=== PATIENT | female | born 1970 | race African-American/Black ===

== ENCOUNTER 2016-09-17 02:15 | Emergency (ER) | payer MEDICAID ==
[~2016-09-17] VITALS: Ht 165.1 cm; Wt 95.0 kg
[2016-09-17 02:22] VITALS: BP 146/90
== END 2016-09-17 05:51 | disposition left against medical advice (07) ==
LOC: ER 02:18
DX: R10.9 Unspecified abdominal pain (principal); Z53.21 Procedure and treatment not carried out due to patient leaving prior to being seen by health care provider

== ENCOUNTER 2018-12-19 10:17 | Inpatient (IN) | payer MEDICAID, OTHER ==
[~2018-12-19] VITALS: Ht 167.6 cm; Wt 108.0 kg
[2018-12-19] MEDS ORDERED: ONDANSETRON HCL 4MG/2ML INJ IV ONE (10:45)
[2018-12-19] MEDS ORDERED: ASPIRIN 81MG TABLET PO ONE (10:45)
[2018-12-19] MEDS ORDERED: NITROGLYCERIN OINT 1GM/INCH UDPKT TD ONE (10:45)
[2018-12-19] MEDS ORDERED: FENTANYL CITRATE/PF 50MCG/ML 2ML VIAL IV ONE (10:45)
[2018-12-19 10:56] LABS: BASOPHILS % 0.4 % (0.0-2.0); EOSINOPHILS % 1.1 % (0.0-5.0); HEMATOCRIT. 38.2 % (36.0-48.0); HEMOGLOBIN. 12.6 g/dL (12.0-16.0); LYMPHOCYTES % 21.5 % (20.0-50.0); MEAN CORPUSCULAR HEMOGLOBIN 26.6 pg (28.0-32.0); MEAN CORPUSCULAR VOLUME 80.7 fL (81.0-99.0); MEAN PLATELET VOLUME 7.6 fl (7.4-10.4); MONOCYTES % 6.2 % (2.0-8.0); NEUTROPHILS % 70.8 % (40.0-76.0); PLATELET 304 x1000/uL (130-400); RED BLOOD CELL COUNT 4.73 mill/uL (4.2-5.4); RED CELL DISTRIBUTION WIDTH 17.4 % (11.6-14.6)
[2018-12-19 10:59] LABS: CHLORIDE 102 mEq/L (98-107)
[2018-12-19 11:03] LABS: ETHANOL BLOOD < 10 mg/dL; HCG SCREEN NEGATIVE
[2018-12-19 11:06] LABS: PARTIAL THROMBOPLASTIN TIME 27.4 sec (23.4-31.0); PROTHROMBIN TIME 10.3 sec (9.6-11.0)
[2018-12-19] MEDS ORDERED: HEPARIN 5000 UNITS/ML VIAL IV ONE (11:15)
[2018-12-19] MEDS ORDERED: POTASSIUM CHLORIDE 20MEQ TABLET SR PO ONE (11:30)
[2018-12-19] MEDS ORDERED: BISACODYL 5MG TABLET PO ONE (11:30)
[2018-12-19] MEDS ORDERED: ACETAMINOPHEN 325MG TABLET PO PRN (11:45)
[2018-12-19] MEDS ORDERED: IPRATROPIUM/ALBUTEROL 0.5-3(2.5)MG/3ML NEB HHN PRN (11:45)
[2018-12-19] MEDS ORDERED: DEXTROSE 50% WATER 50ML SYRINGE IV PRN (11:45)
[2018-12-19] MEDS ORDERED: ONDANSETRON HCL 4MG/2ML INJ IV PRN (11:45)
[2018-12-19 13:51] VITALS: BP 124/74
[2018-12-19 13:57] VITALS: BP 124/74
[2018-12-19] MEDS ORDERED: NEBIVOLOL HCL 5 MG TABLET PO NR (15:00)
[2018-12-19] MEDS: SODIUM CHLORIDE 0.9% 1,000 ML IV SCH (15:50)
[2018-12-19] MEDS: NICOTINE 14MG PATCH TD SCH (15:56)
[2018-12-19 16:00] VITALS: BP 141/53
[2018-12-19] MEDS ORDERED: DIPHENHYDRAMINE 50MG/ML VIAL IV PRN (16:00)
[2018-12-19 17:04] LABS: CLARITY URINE CLOUDY (CLEAR); COLOR URINE YELLOW (YELLOW); KETONES URINE NEGATIVE (NEGATIVE); LEUKOCYTE ESTERASE URINE TRACE (NEGATIVE); NITRITE URINE NEGATIVE (NEGATIVE); OCCULT BLOOD URINE 1+ (NEGATIVE); PROTEIN URINE 1+ (NEGATIVE); SPECIFIC GRAVITY URINE 1.019 (1.005-1.030)
[2018-12-19 17:19] LABS: *AMPHETAMINES SCREEN URINE NEGATIVE (NEGATIVE); METHADONE URINE SCREEN NEGATIVE (NEGATIVE); OPIATES URINE SCREEN NEGATIVE (NEGATIVE); PHENCYCLIDINE URINE SCREEN NEGATIVE (NEGATIVE)
[2018-12-19 17:20] LABS: *BARBITURATES SCREEN URINE NEGATIVE (NEGATIVE); *BENZODIAZEPINES SCREEN URINE NEGATIVE (NEGATIVE); *COCAINE SCREEN URINE NEGATIVE (NEGATIVE)
[2018-12-19] MEDS: INSULIN LISPRO 100 UNITS/ML SUBCUT SCH ×2 (17:20→20:38)
[2018-12-19 17:23] LABS: CANNABINOID URINE SCREEN PRESUMTIVE POSITIVE (NEGATIVE)
[2018-12-19] MEDS: BLOOD SUGAR DIAGNOSTIC STRIP TEST SCH ×2 (17:44→20:40)
[2018-12-19] MEDS: DILTIAZEM HCL 60MG TABLET PO SCH (17:44)
[2018-12-19 17:56] VITALS: BP 134/93
[2018-12-19 20:01] VITALS: BP 146/93
[2018-12-19] MEDS: METOPROLOL TARTRATE 50MG TABLET PO SCH (20:06)
[2018-12-19] MEDS: HYDROCODONE/ACETAMINOPHEN 10/325MG TABLET PO PRN (20:36)
[2018-12-19 22:00] VITALS: BP 120/75
[2018-12-20] VITALS (8 sets, daily range): BP systolic 118–147; BP diastolic 70–98
[2018-12-20] MEDS: DILTIAZEM HCL 60MG TABLET PO SCH ×3 (00:58→12:00)
[2018-12-20] MEDS: SODIUM CHLORIDE 0.9% 1,000 ML IV SCH (02:20)
[2018-12-20] MEDS: BLOOD SUGAR DIAGNOSTIC STRIP TEST SCH ×2 (06:01→12:17)
[2018-12-20] MEDS: HYDROCODONE/ACETAMINOPHEN 10/325MG TABLET PO PRN (06:02)
[2018-12-20 07:14] LABS: BASOPHILS % 0.3 % (0.0-2.0); EOSINOPHILS % 1.2 % (0.0-5.0); HEMATOCRIT. 32.4 % (36.0-48.0); HEMOGLOBIN. 10.4 g/dL (12.0-16.0); LYMPHOCYTES % 25.4 % (20.0-50.0); MEAN CORPUSCULAR HEMOGLOBIN 26.3 pg (28.0-32.0); MEAN CORPUSCULAR VOLUME 82.1 fL (81.0-99.0); MEAN PLATELET VOLUME 7.7 fl (7.4-10.4); MONOCYTES % 9.7 % (2.0-8.0); NEUTROPHILS % 63.4 % (40.0-76.0); PLATELET 273 x1000/uL (130-400); RED BLOOD CELL COUNT 3.94 mill/uL (4.2-5.4); RED CELL DISTRIBUTION WIDTH 17.5 % (11.6-14.6)
[2018-12-20] MEDS: INSULIN LISPRO 100 UNITS/ML SUBCUT SCH ×2 (07:20→12:18)
[2018-12-20] MEDS ORDERED: DIPHENHYDRAMINE 50MG CAPSULE PO PRN (07:45)
[2018-12-20 07:58] LABS: CHLORIDE 102 mEq/L (98-107)
[2018-12-20] MEDS ORDERED: DIPHENHYDRAMINE 50MG/ML VIAL IV PRN (08:00)
[2018-12-20 08:14] LABS: CREATINE KINASE 73 IU/L (26-192)
[2018-12-20 08:26] LABS: CREATINE KINASE MB FRACTION 1.8 ng/mL (0.5-3.6)
[2018-12-20] MEDS: NICOTINE 14MG PATCH TD SCH (08:37)
[2018-12-20] MEDS ORDERED: ASPIRIN 81MG TABLET PO SCH (09:00)
[2018-12-20] MEDS: METOPROLOL TARTRATE 50MG TABLET PO SCH (09:00)
[2018-12-20] MEDS ORDERED: BISA10SU62 RC (13:50)
[2018-12-20] MEDS ORDERED: AMLO10TA80 MT (13:50)
[2018-12-20] MEDS ORDERED: METF-414 PO (13:50)
[2018-12-20] MEDS ORDERED: IBUP-2029 PO (13:50)
[2018-12-20] MEDS ORDERED: HYDR25TA PO (13:50)
[2018-12-20] MEDS ORDERED: OMEP20TA15 PO (13:54)
[2018-12-20] MEDS ORDERED: DEXT38GE PO (13:54)
[2018-12-20] MEDS ORDERED: FURO40TA5 PO (13:55)
== END 2018-12-20 14:29 | disposition home or self-care (01) | DRG 203 ==
LOC: ER 10:17 → EDBEDREQ 10:30 → 3WST 11:15 → EDBEDREQ 11:29 → EDBEDREQSVC 11:29 → EDBEDREQTM 11:29 → ENRESERV 12:53
PROVIDERS: ADMIT Internal Medicine; ATTEND Internal Medicine
DX: M94.0 Chondrocostal junction syndrome [Tietze] (principal); E11.9 Type 2 diabetes mellitus without complications; J44.9 Chronic obstructive pulmonary disease, unspecified; I10 Essential (primary) hypertension; F17.210 Nicotine dependence, cigarettes, uncomplicated; E87.6 Hypokalemia; E78.5 Hyperlipidemia, unspecified; I25.10 Atherosclerotic heart disease of native coronary artery without angina pectoris; E78.00 Pure hypercholesterolemia, unspecified; R00.0 Tachycardia, unspecified; E66.9 Obesity, unspecified; E78.1 Pure hyperglyceridemia; Z68.38 Body mass index [BMI] 38.0-38.9, adult; Z98.891 History of uterine scar from previous surgery; Z87.01 Personal history of pneumonia (recurrent); I25.2 Old myocardial infarction; Z71.3 Dietary counseling and surveillance; Z71.6 Tobacco abuse counseling; Z95.5 Presence of coronary angioplasty implant and graft
CPT/HCPCS: 36415; 71045; 72131; 80305; 80320; 82550; 82553; 82962; 83735; 83880; 84443; 84484; 84703; 85379; 93005; 93306; 93970; 96374; 96375; 97162; 99291; J1200; J1644; J1815; J2405; J3010; J7040; G0480

== ENCOUNTER 2022-03-05 00:16 | Emergency (ER) | payer OTHER ==
[~2022-03-05] VITALS: Ht 167.6 cm; Wt 109.6 kg
[~2022-03-05 00:16] MED LIST: AMLO10TA80 MT; BISA10SU62 RC; DEXT38GE PO; FURO40TA5 PO; HYDR25TA PO; IBUP-2029 PO; METF-414 PO; OMEP20TA15 PO
[2022-03-05] MEDS ORDERED: CLONIDINE 0.2MG TABLET PO ONE (02:15)
[2022-03-05] MEDS ORDERED: DIPHENHYDRAMINE 25MG CAPSULE PO ONE (02:15)
[2022-03-05] MEDS ORDERED: CEPH500C2 MT (03:12)
[2022-03-05] MEDS ORDERED: SLS TP (03:12)
[2022-03-05 03:31] VITALS: BP 115/78
== END 2022-03-05 03:33 | disposition home or self-care (01) ==
LOC: ER 00:16
DX: L29.9 Pruritus, unspecified (principal); I10 Essential (primary) hypertension; J44.9 Chronic obstructive pulmonary disease, unspecified; E11.9 Type 2 diabetes mellitus without complications
CPT/HCPCS: 99283; Q0163